=== PATIENT | male | born 1940 | race Caucasian/White ===

== ENCOUNTER 2020-10-29 12:57 | Outpatient (CLI) | payer MEDICARE | END 2020-10-29 12:58 | disposition home or self-care (01) | LOC: CSHULT 12:57 | PROVIDERS: ATTEND Otolaryngology Plastic Surgery within the Head & Neck | DX: C79.89 Secondary malignant neoplasm of other specified sites (principal) | CPT/HCPCS: 76536 ==

== ENCOUNTER 2022-08-02 14:02 | Outpatient (CLI) | payer MEDICARE | END 2022-08-02 14:03 | disposition home or self-care (01) | LOC: CSHMRI 14:02 | PROVIDERS: ATTEND Physician Assistant | DX: H93.A2 Pulsatile tinnitus, left ear (principal); R90.82 White matter disease, unspecified; I65.1 Occlusion and stenosis of basilar artery | CPT/HCPCS: 70544; 70553; 82565 ==